=== PATIENT | female | born 1940 | race Caucasian/White ===

== ENCOUNTER 2017-11-29 10:18 | Outpatient (CLI) | payer MEDICARE | END 2017-11-29 10:19 | disposition home or self-care (01) | LOC: BICMAMMO 10:18 | PROVIDERS: ATTEND Specialist | DX: Z12.31 Encounter for screening mammogram for malignant neoplasm of breast (principal); M81.0 Age-related osteoporosis without current pathological fracture; M85.852 Other specified disorders of bone density and structure, left thigh; R92.1 Mammographic calcification found on diagnostic imaging of breast | CPT/HCPCS: 77063; 77067; 77080 ==

== ENCOUNTER 2022-01-20 10:02 | Outpatient (CLI) | payer MEDICARE | END 2022-01-20 10:03 | disposition home or self-care (01) | LOC: BICMAMMO 10:02 | PROVIDERS: ATTEND Specialist | DX: Z12.31 Encounter for screening mammogram for malignant neoplasm of breast (principal); M85.851 Other specified disorders of bone density and structure, right thigh; M81.0 Age-related osteoporosis without current pathological fracture | CPT/HCPCS: 77063; 77067; 77080 ==